=== PATIENT | female | born 1990 | race Caucasian/White ===

== ENCOUNTER 2020-12-27 10:28 | Outpatient (REF) | payer OTHER, SELFPAY | END 2020-12-27 10:29 | disposition home or self-care (01) | LOC: HO.LAB 10:28 | PROVIDERS: PCP Internal Medicine; Visit Provider Internal Medicine | DX: Z20.822 Contact with and (suspected) exposure to COVID-19 (principal) | CPT/HCPCS: 36415; C9803; U0003; U0005 ==

== ENCOUNTER 2023-06-29 16:32 | Emergency (ER) | payer OTHER, SELFPAY ==
[2023-06-29 16:42] VITALS: BP 136/72; PULSE 101; RESP 19; TEMP 36.6; O2SAT 100; BMI 35.2
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
[2023-06-29] MEDS: Acetaminophen 325 MG TABLET 975 MG PO (18:58)
== END 2023-06-29 19:02 | disposition home or self-care (01) ==
PROVIDERS: Emergency Provider Emergency Medicine; PCP Internal Medicine
DX: G89.11 Acute pain due to trauma (principal); M25.512 Pain in left shoulder; M25.552 Pain in left hip; R51.9 Headache, unspecified
CPT/HCPCS: 99283; 99284